=== PATIENT | male | born 1970 | race Caucasian/White ===

== ENCOUNTER → 2016-03-05 | Outpatient (CLI) | payer BC ==
[2016-03-05 10:48] LABS: CH 29.4; CHCM 33.2; HDW 2.75; HGB 15.5 gm/dL (13.0-17.5); MCH 29.4 pg (25.0-35.0); MCHC 33.1 g/dL (31.0-37.0); MCV 89.1 fL (80.0-100.0); Mean Platelet Volume 6.3; RBC 5.28 m/uL (4.30-5.90); RDW 13.7 % (11.5-15.5); WBC 6.1 k/uL (3.8-10.6)
== END | disposition home or self-care (01) ==
LOC: LABWHC1 10:18
PROVIDERS: ATTEND Internal Medicine Endocrinology, Diabetes & Metabolism
DX: E29.1 Testicular hypofunction (principal)
CPT/HCPCS: 36415; 84403; 85027

== ENCOUNTER → 2016-06-10 | Outpatient (CLI) | payer BC ==
[2016-06-10 10:49] LABS: CH 29.2; CHCM 32.8; HCT 49.1 % (39.0-53.0); HDW 2.58; MCH 29.1 pg (25.0-35.0); MCHC 32.5 g/dL (31.0-37.0); MCV 89.5 fL (80.0-100.0); Mean Platelet Volume 6.3; RBC 5.48 m/uL (4.30-5.90); RDW 14.2 % (11.5-15.5); WBC 9.1 k/uL (3.8-10.6)
[2016-06-10 13:02] LABS: Prostate Specific Antigen 1.19 ng/mL (0.00-4.00)
== END | disposition home or self-care (01) ==
LOC: LABWHC1 10:24
PROVIDERS: ATTEND Internal Medicine Endocrinology, Diabetes & Metabolism
DX: E29.1 Testicular hypofunction (principal)
CPT/HCPCS: 36415; 84153; 84402; 84403; 85027

== ENCOUNTER → 2016-10-28 | Outpatient (CLI) | payer BC ==
[2016-10-28 11:18] LABS: CH 30.4; CHCM 33.3; HDW 2.73; HGB 16.7 gm/dL (13.0-17.5); MCH 29.5 pg (25.0-35.0); MCHC 32.2 g/dL (31.0-37.0); MCV 91.7 fL (80.0-100.0); Mean Platelet Volume 7.3; RBC 5.67 m/uL (4.30-5.90); RDW 14.8 % (11.5-15.5); WBC 6.2 k/uL (3.8-10.6)
== END | disposition home or self-care (01) ==
LOC: LABWHC1 09:51
PROVIDERS: ATTEND Internal Medicine Endocrinology, Diabetes & Metabolism
DX: E29.1 Testicular hypofunction (principal)
CPT/HCPCS: 36415; 84403; 85027

== ENCOUNTER → 2017-05-12 | Outpatient (CLI) | payer BC ==
[2017-05-12 15:42] LABS: HCT 48.8 % (39.0-53.0); HGB 16.6 gm/dL (13.0-17.5); MCH 29.5 pg (25.0-35.0); MCHC 33.9 g/dL (31.0-37.0); MCV 87.2 fL (80.0-100.0); Mean Platelet Volume 6.5; Platelet Count 219 k/uL (150-450); RDW 13.5 % (11.5-15.5); WBC 6.8 k/uL (3.8-10.6)
== END | disposition home or self-care (01) ==
LOC: LABWHC1 14:32
PROVIDERS: ATTEND Internal Medicine Endocrinology, Diabetes & Metabolism
DX: E29.1 Testicular hypofunction (principal)
CPT/HCPCS: 36415; 84153; 84403; 85027

== ENCOUNTER → 2017-10-12 | Outpatient (CLI) | payer BC ==
[2017-10-12 14:22] LABS: HCT 47.2 % (39.0-53.0); HGB 15.9 gm/dL (13.0-17.5); MCH 29.2 pg (25.0-35.0); MCHC 33.7 g/dL (31.0-37.0); MCV 86.5 fL (80.0-100.0); Mean Platelet Volume 6.5; Platelet Count 249 k/uL (150-450); RBC 5.46 m/uL (4.30-5.90); RDW 14.4 % (11.5-15.5); WBC 7.4 k/uL (3.8-10.6)
== END | disposition home or self-care (01) ==
LOC: LABWHC1 13:17
PROVIDERS: ATTEND Internal Medicine Endocrinology, Diabetes & Metabolism
DX: E29.1 Testicular hypofunction (principal)
CPT/HCPCS: 36415; 84403; 85027

== ENCOUNTER → 2018-03-15 | Outpatient (CLI) | payer BC ==
[2018-03-15 16:23] LABS: HCT 52.6 % (39.0-53.0); HGB 16.7 gm/dL (13.0-17.5); MCHC 31.8 g/dL (31.0-37.0); MCV 91.2 fL (80.0-100.0); Mean Platelet Volume 5.8; Platelet Count 207 k/uL (150-450); RBC 5.77 m/uL (4.30-5.90); RDW 13.9 % (11.5-15.5); WBC 7.9 k/uL (3.8-10.6)
== END ==
LOC: LABWHC1 15:58
PROVIDERS: ATTEND Internal Medicine Endocrinology, Diabetes & Metabolism
DX: E29.1 Testicular hypofunction (principal)
CPT/HCPCS: 36415; 84403; 85027

== ENCOUNTER → 2018-11-12 | Outpatient (CLI) | payer BC ==
[2018-11-12 12:13] LABS: Anisocytosis Slight; HCT 54.6 % (39.0-53.0); HGB 18.3 gm/dL (13.0-17.5); MCH 29.7 pg (25.0-35.0); MCHC 33.5 g/dL (31.0-37.0); MCV 88.8 fL (80.0-100.0); Mean Platelet Volume 6.7; Platelet Count 198 k/uL (150-450); RBC 6.14 m/uL (4.30-5.90); RDW 16.1 % (11.5-15.5)
== END | disposition home or self-care (01) ==
LOC: LABWHC1 10:47
PROVIDERS: ATTEND Internal Medicine Endocrinology, Diabetes & Metabolism
DX: E29.1 Testicular hypofunction (principal)
CPT/HCPCS: 36415; 84153; 84403; 85027

== ENCOUNTER 2019-08-29 18:12 | Observation (INO) | payer BC ==
[2019-08-29] MEDS ORDERED: SODIUM CHLORIDE 0.9% 1,000 ML IV STA (19:17)
[2019-08-29] MEDS ORDERED: ONDANSETRON 4 MG/2 ML VIAL IVP STA (19:17)
[2019-08-29] MEDS ORDERED: PIPERACILLIN-TAZOBACTAM 3.375 GM in SODIUM CHLORIDE 0.9% 100 ML IVPB STA (19:17)
[2019-08-29] MEDS ORDERED: HYDROmorphone 1 MG/ML 1 ML SYRINGE IVP STA (19:17)
[2019-08-29] MEDS ORDERED: SODIUM CHLORIDE 0.9% 500 ML 500 ML IV STA (19:17)
[2019-08-29] MEDS ORDERED: ACETAMINOPHEN TAB 500 MG TAB PO STA (19:17)
--- NOTE | 2019-08-29 19:31 | ED ---
Abdominal Pain HPI - General Chief Complaint: Abdominal Pain Stated Complaint: appy Time Seen by Provider: 08/29/19 19:11 Source: patient Mode of arrival: ambulatory Limitations: physical limitation - History of Present Illness Initial Comments: 48-year-old male patient presents to the emergency department today for evaluation after having an outpatient computed tomography scan was positive for appendicitis. Patient states that he woke up yesterday morning with some generalized abdominal pain and tenderness. States that his started to get worse around his umbilicus and then moved to the right lower quadrant last night. States that he did have fevers throughout the night last night. Denies any nausea or vomiting. States he has been having diarrhea. Patient called his doctor this morning, had outpatient computed tomography scan done, and was sent here once they found appendicitis. Patient denies history of abdominal surgery. Denies smoking cigarettes. Is otherwise healthy. Patient denies any recent rash, cough, shortness of breath, chest pain, back pain, numbness, tingling, dizziness, weakness, hematuria, dysuria, urinary urgency, urinary frequency, headache, visual changes, or any other complaints. - Related Data Home Medications Medication Instructions Recorded Confirmed Ibuprofen [Motrin Ib] 800 mg PO Q8H PRN 08/29/19 08/29/19 Rosuvastatin Calcium [Crestor] 5 mg PO HS 08/29/19 08/29/19 Testosterone Cypionate 200 mg IM Q14D 08/29/19 08/29/19 [Depo-Testosterone] Allergies Allergy/AdvReac Type Severity Reaction Status Date / Time cotton wood AdvReac Rash/Hives Uncoded 08/29/19 20:06 Review of Systems ROS Statement: Those systems with pertinent positive or pertinent negative responses have been documented in the HPI. ROS Other: All systems not noted in ROS Statement are negative. Past Medical History Past Medical History: Hyperlipidemia History of Any Multi-Drug Resistant Organisms: None Reported Additional Past Surgical History / Comment(s): right ankle scope Past Psychological History: No Psychological Hx Reported Smoking Status: Never smoker Past Alcohol Use History: Occasional Past Drug Use History: None Reported General Exam Limitations: physical limitation General appearance: alert, in no apparent distress, other (Physical well- developed, well-nourished adult male patient in no acute distress. Vital signs upon presentation are temperature 101.7F, pulse 123, respirations 18, blood pressure 133/80, pulse ox 96% on room air.) Respiratory exam: Present: normal lung sounds bilaterally. Absent: respiratory distress, wheezes, rales, rhonchi, stridor Cardiovascular Exam: Present: regular rate, normal rhythm, normal heart sounds. Absent: systolic murmur, diastolic murmur, rubs, gallop, clicks GI/Abdominal exam: Present: soft, tenderness (Right lower quadrant tenderness), normal bowel sounds. Absent: distended, guarding, rebound, rigid Neurological exam: Present: alert, oriented X3, CN II-XII intact Psychiatric exam: Present: normal affect, normal mood Skin exam: Present: warm, dry, intact, normal color. Absent: rash Course Vital Signs 08/29/19 18:28 Temperature 101.7 F H Pulse Rate 123 H Respiratory 18 Rate Blood Pressure 133/80 O2 Sat by Pulse 96 Oximetry Medical Decision Making - Medical Decision Making 48 year-old male patient presents to the emergency department today for evaluation after having a computed tomography scan outpatient that was positive for appendicitis. Physical examination did reveal right lower quadrant abdominal tenderness. He is febrile and tachycardic upon arrival. Labs reviewed and revealed a normal white blood cell. Elevated lactic acid at 2.2. We did give IV fluids, pain medication, antipyretic, and started antibiotics. Dr. Feng was consulted and will be coming in tonight perform appendectomy. Did update patient with the plan and results he is agreeable. - Lab Data Result diagrams: 08/29/19 20:11 08/29/19 20:04 Lab Results 08/29/19 08/29/19 08/29/19 Range/Units 20:04 20:04 20:11 WBC 9.4 (3.8-10.6) k/uL RBC 6.05 H (4.30-5.90) m/uL Hgb 17.5 (13.0-17.5) gm/dL Hct 54.4 H (39.0-53.0) % MCV 89.9 (80.0-100.0) fL MCH 28.9 (25.0-35.0) pg MCHC 32.2 (31.0-37.0) g/dL RDW 14.8 (11.5-15.5) % Plt Count 151 (150-450) k/uL Neutrophils % 86 % Lymphocytes % 6 % Monocytes % 6 % Eosinophils % 0 % Basophils % 0 % Neutrophils # 8.1 H (1.3-7.7) k/uL Lymphocytes # 0.5 L (1.0-4.8) k/uL Monocytes # 0.5 (0-1.0) k/uL Eosinophils # 0.0 (0-0.7) k/uL Basophils # 0.0 (0-0.2) k/uL Sodium 133 L (137-145) mmol/L Potassium 4.5 (3.5-5.1) mmol/L Chloride 98 (98-107) mmol/L Carbon Dioxide 26 (22-30) mmol/L Anion Gap 9 mmol/L BUN 12 (9-20) mg/dL Creatinine 1.53 H (0.66-1.25) mg/dL Est GFR (CKD-EPI)AfAm 62 (>60 ml/min/1.73 sqM) Est GFR (CKD-EPI)NonAf 54 (>60 ml/min/1.73 sqM) Glucose 92 (74-99) mg/dL Plasma Lactic Acid Tyson 2.2 H* (0.7-2.0) mmol/L Calcium 9.4 (8.4-10.2) mg/dL Total Bilirubin 1.3 (0.2-1.3) mg/dL AST 39 (17-59) U/L ALT 44 (4-49) U/L Alkaline Phosphatase 87 (38-126) U/L Total Protein 7.8 (6.3-8.2) g/dL Albumin 4.5 (3.5-5.0) g/dL Amylase 67 (30-110) U/L Lipase 81 (23-300) U/L - Radiology Data Radiology results: report reviewed CT abdomen and pelvis is obtained. Report was reviewed in its entirety. Impression by Dr. Pearce shows fat stranding inflammatory changes around the thickened appendix consistent with acute appendicitis. No abscess. Disposition Clinical Impression: Appendicitis Disposition: ADMITTED IP TO THIS [facility] Condition: Serious Referrals: Modesto Hayes MD [Primary Care Provider] - 1-2 days Decision to Admit Reason: Admit from EC Decision Date: 08/29/19 Decision Time: 21:16
[2019-08-29 20:24] LABS: Basophils % (A) 0 %; Eosinophils % (A) 0 %; HCT 54.4 % (39.0-53.0); HGB 17.5 gm/dL (13.0-17.5); Lymphocytes # (A) 0.5 k/uL (1.0-4.8); Lymphocytes % (A) 6 %; MCH 28.9 pg (25.0-35.0); MCHC 32.2 g/dL (31.0-37.0); MCV 89.9 fL (80.0-100.0); Mean Platelet Volume 6.9; Monocytes # (A) 0.5 k/uL (0-1.0); Monocytes % (A) 6 %; Neutrophils # (A) 8.1 k/uL (1.3-7.7); Neutrophils % (A) 86 %; Platelet Count 151 k/uL (150-450); RBC 6.05 m/uL (4.30-5.90); RDW 14.8 % (11.5-15.5); WBC 9.4 k/uL (3.8-10.6)
[2019-08-29] MEDS ORDERED: ONDANSETRON 4 MG/2 ML VIAL IVP PRN ×2 (20:26→22:22)
[2019-08-29] MEDS ORDERED: NALOXONE 0.4 MG/ML 1 ML VIAL IV PRN ×2 (20:26→22:22)
[2019-08-29 20:35] LABS: Potassium 4.5 mmol/L (3.5-5.1)
[2019-08-29 20:36] LABS: Albumin 4.5 g/dL (3.5-5.0); Calcium 9.4 mg/dL (8.4-10.2); Total Bilirubin 1.3 mg/dL (0.2-1.3); Total Protein 7.8 g/dL (6.3-8.2)
[2019-08-29] MEDS ORDERED: ROCURONIUM BROMIDE 10 MG/ML 5 ML VIAL IV ONE (21:35)
[2019-08-29] MEDS ORDERED: MIDAZOLAM 2 MG/2 ML VIAL ONE (21:35)
[2019-08-29] MEDS ORDERED: LIDOCAINE 1% INJ 10MG/ML (20 ML MDV) ONE (21:35)
[2019-08-29] MEDS ORDERED: SUCCINYLCHOLINE CHLORIDE VIAL 200 MG/10 ML VIAL IV ONE (21:35)
[2019-08-29] MEDS ORDERED: KETOROLAC 30 MG/ML 1 ML VIAL ONE (21:35)
[2019-08-29] MEDS ORDERED: GLYCOPYRROLATE 0.2 MG/ML 2 ML VIAL ONE (21:35)
[2019-08-29] MEDS ORDERED: NEOSTIGMINE 1 MG/ML 10 ML VIAL ONE (21:35)
[2019-08-29] MEDS ORDERED: PROPOFOL 10 MG/ML 20 ML VIAL IV ONE (21:35)
[2019-08-29] MEDS ORDERED: HEPARIN SODIUM,PORCINE 5,000 UNIT/ML 1 ML VIAL ONE (21:35)
[2019-08-29] MEDS ORDERED: ONDANSETRON 4 MG/2 ML VIAL ONE (21:35)
[2019-08-29] MEDS ORDERED: fentaNYL (PF) 50 MCG/ML 2 ML AMP ONE (21:35)
[2019-08-29] MEDS ORDERED: DEXAMETHASONE SOD PHOSPHATE 10 MG/ML 1 ML VIAL ONE (21:35)
[2019-08-29] MEDS ORDERED: ceFAZolin 1,000 MG VIAL ONE (21:35)
[2019-08-29] MEDS ORDERED: BUPIVACAINE (PF) 0.25% 30 ML VIAL SQ ONE (21:38)
[2019-08-29] MEDS ORDERED: SODIUM CHLORIDE 0.9% 1,000 ML IV ONE (21:39)
--- NOTE | 2019-08-29 21:43 | P.GSHP ---
History of Present Illness H&P Date: 08/29/19 Chief Complaint: Right lower quadrant pain This a 48-year-old male with a 24 history of right lower quadrant pain. Patient was worked up emergency room found have evidence of acute appendicitis. Past Medical History Past Medical History: Hyperlipidemia History of Any Multi-Drug Resistant Organisms: None Reported Additional Past Surgical History / Comment(s): right ankle scope Past Psychological History: No Psychological Hx Reported Smoking Status: Never smoker Past Alcohol Use History: Occasional Past Drug Use History: None Reported Medications and Allergies Home Medications Medication Instructions Recorded Confirmed Type Ibuprofen [Motrin Ib] 800 mg PO Q8H PRN 08/29/19 08/29/19 History Rosuvastatin Calcium [Crestor] 5 mg PO HS 08/29/19 08/29/19 History Testosterone Cypionate 200 mg IM Q14D 08/29/19 08/29/19 History [Depo-Testosterone] Allergies Allergy/AdvReac Type Severity Reaction Status Date / Time cotton wood AdvReac Rash/Hives Uncoded 08/29/19 20:06 Surgical - Exam Vital Signs Temp Pulse Resp BP Pulse Ox 101.7 F H 123 H 18 133/80 96 08/29/19 18:28 08/29/19 18:28 08/29/19 18:28 08/29/19 18:28 08/29/19 18:28 - General well developed, well nourished, no distress - Eyes PERRL - ENT normal pinna - Neck no masses - Respiratory normal expansion - Cardiovascular Rhythm: regular - Abdomen Marked right lower quadrant tenderness Abdomen: soft Results - Labs 08/29/19 20:11 08/29/19 20:04 Abnormal Lab Results - Last 24 Hours (Table) 08/29/19 08/29/19 08/29/19 Range/Units 20:04 20:04 20:11 RBC 6.05 H (4.30-5.90) m/uL Hct 54.4 H (39.0-53.0) % Neutrophils # 8.1 H (1.3-7.7) k/uL Lymphocytes # 0.5 L (1.0-4.8) k/uL Sodium 133 L (137-145) mmol/L Creatinine 1.53 H (0.66-1.25) mg/dL Plasma Lactic Acid Tyson 2.2 H* (0.7-2.0) mmol/L Diabetes panel 08/29/19 Range/Units 20:04 Sodium 133 L (137-145) mmol/L Potassium 4.5 (3.5-5.1) mmol/L Chloride 98 (98-107) mmol/L Carbon Dioxide 26 (22-30) mmol/L BUN 12 (9-20) mg/dL Creatinine 1.53 H (0.66-1.25) mg/dL Glucose 92 (74-99) mg/dL Calcium 9.4 (8.4-10.2) mg/dL AST 39 (17-59) U/L ALT 44 (4-49) U/L Alkaline Phosphatase 87 (38-126) U/L Total Protein 7.8 (6.3-8.2) g/dL Albumin 4.5 (3.5-5.0) g/dL Calcium panel 08/29/19 Range/Units 20:04 Calcium 9.4 (8.4-10.2) mg/dL Albumin 4.5 (3.5-5.0) g/dL Pituitary panel 08/29/19 Range/Units 20:04 Sodium 133 L (137-145) mmol/L Potassium 4.5 (3.5-5.1) mmol/L Chloride 98 (98-107) mmol/L Carbon Dioxide 26 (22-30) mmol/L BUN 12 (9-20) mg/dL Creatinine 1.53 H (0.66-1.25) mg/dL Glucose 92 (74-99) mg/dL Calcium 9.4 (8.4-10.2) mg/dL Adrenal panel 08/29/19 Range/Units 20:04 Sodium 133 L (137-145) mmol/L Potassium 4.5 (3.5-5.1) mmol/L Chloride 98 (98-107) mmol/L Carbon Dioxide 26 (22-30) mmol/L BUN 12 (9-20) mg/dL Creatinine 1.53 H (0.66-1.25) mg/dL Glucose 92 (74-99) mg/dL Calcium 9.4 (8.4-10.2) mg/dL Total Bilirubin 1.3 (0.2-1.3) mg/dL AST 39 (17-59) U/L ALT 44 (4-49) U/L Alkaline Phosphatase 87 (38-126) U/L Total Protein 7.8 (6.3-8.2) g/dL Albumin 4.5 (3.5-5.0) g/dL Assessment and Plan Assessment: Acute appendicitis. We'll perform laparoscopic appendectomy
[2019-08-29] MEDS ORDERED: SODIUM CHLORIDE 0.9% 150 ML with ceFAZolin 3,000 MG IV ONE ×2 (21:51)
[2019-08-29] MEDS ORDERED: LACTATED RINGERS 1,000 ML IV ONE ×2 (22:15→22:22)
[2019-08-29] MEDS ORDERED: METOCLOPRAMIDE 5 MG/ML 2 ML VIAL IVP PRN (22:22)
[2019-08-29] MEDS ORDERED: HYDROmorphone 0.5 MG/0.5 ML SYRINGE IVP PRN (22:22)
[2019-08-30] MEDS: HYDROmorphone 1 MG/ML 1 ML SYRINGE IVP PRN ×3 (00:28→09:20)
[2019-08-30] MEDS: PIPERACILLIN-TAZOBACTAM 3.375 GM in SODIUM CHLORIDE 0.9% 100 ML IVPB SCH ×3 (03:55→19:29)
[2019-08-30 06:40] LABS: Appearance,Urine Clear (Clear); Bilirubin,Urine Negative (Negative); Blood,Urine Large (Negative); Color,Urine Yellow; Glucose,Urine (UA) Negative (Negative); Hyaline Casts,Urine 3 /lpf (0-2); Ketones,Urine 1+ (Negative); Leukocyte Esterase,Urine Negative (Negative); Mucus,Urine Occasional /hpf; Nitrite,Urine Negative (Negative); Protein,Urine 2+ (Negative); RBC,Urine 1 /hpf (0-5); Urobilinogen,Urine <2.0 mg/dL (<2.0); WBC,Urine 2 /hpf (0-5)
[2019-08-30 07:14] LABS: Specific Gravity,Urine 1.046 (1.001-1.035)
[2019-08-30 07:41] LABS: Basophils % (A) 0 %; Eosinophils % (A) 0 %; HCT 47.8 % (39.0-53.0); HGB 15.5 gm/dL (13.0-17.5); Lymphocytes # (A) 0.4 k/uL (1.0-4.8); Lymphocytes % (A) 4 %; MCH 29.4 pg (25.0-35.0); MCHC 32.5 g/dL (31.0-37.0); MCV 90.5 fL (80.0-100.0); Mean Platelet Volume 7.1; Monocytes # (A) 0.5 k/uL (0-1.0); Monocytes % (A) 4 %; Neutrophils # (A) 11.7 k/uL (1.3-7.7); Neutrophils % (A) 91 %; Platelet Count 164 k/uL (150-450); RBC 5.28 m/uL (4.30-5.90); RDW 14.8 % (11.5-15.5); WBC 12.8 k/uL (3.8-10.6)
[2019-08-30 08:10] LABS: Albumin 3.8 g/dL (3.5-5.0); Calcium 8.1 mg/dL (8.4-10.2); Potassium 5.3 mmol/L (3.5-5.1); Total Protein 6.7 g/dL (6.3-8.2)
[2019-08-30] MEDS: ENOXAPARIN 40 MG/0.4 ML SYRINGE SQ SCH (09:22)
--- NOTE | 2019-08-30 11:37 | P.OP ---
Date of Procedure: 08/29/19 Preoperative Diagnosis: Acute appendicitis Postoperative Diagnosis: Acute retrocecal appendicitis Procedure(s) Performed: Open appendectomy Anesthesia: NELSY Surgeon: Nolan Verma Estimated Blood Loss (ml): 50 Pathology: other (Appendix) Condition: stable Disposition: PACU Description of Procedure: The patient's placed on the operating table in the supine position. The patient received general anesthesia. The abdomen was prepped and draped in the usual sterile fashion. The skin was anesthetized 1% local Xylocaine at the trocar sites. Using an 11 blade the skin was incised at the umbilicus. The umbilicus was grasped with a Brewster clamp and then a Veress needle was placed into the peritoneal cavity. Position of the Veress needle was confirmed with positive drop test. After adequate insufflation a 5 mm trocar was placed into the peritoneal cavity. The abdomen was further insufflated. And then the laparoscope was placed in the peritoneal cavity. Next a 5 mm trocar was placed in the midline suprapubic position. And then a 10 mm trocar was placed in the midline epigastric position. The patient was rotated with the right side up and in Trendelenburg. The appendix appeared to be retrocecal. The appendix was grossly inflamed Using blunt dissection the appendix was attempted to be brought up into the wound. There was some bleeding from the appendiceal artery. At this point it was decided to convert procedure open technique due to nonvisualization of the appendix. The trochars withdrawn. The abdomen was incised in the midline. Using cautery the abdominal wall was divided. The body wall retractors placed a wound. The cecum and appendix were then brought towards the midline. The appendiceal artery was ligated with 3-0 silk suture. The appendix was then divided after a Endoloop was placed around the base the appendix. The appendix was divided with the Harmonic scissors. And sent to pathology. The abdomen was irrigated there is no being seen. The fascia was closed with looped #1 PDS suture. Skin was closed ld. Patient top she will was sent to recovery room stable condition.
--- NOTE | 2019-08-30 12:20 | P.PN ---
Subjective Progress Note Date: 08/30/19 Principal diagnosis: Acute appendicitis The patient's postoperative day 1 from open appendectomy for acute retrocecal appendicitis. He has minimal complaints of pain. Objective - Vital Signs Vital signs: Vital Signs Temp 98.1 F 08/30/19 04:37 Pulse 94 08/30/19 08:00 Resp 16 08/30/19 08:00 BP 126/83 08/30/19 04:37 Pulse Ox 96 08/30/19 04:37 Intake & Output 08/29/19 08/30/19 08/30/19 18:59 06:59 18:59 Intake Total 1850 Output Total 370 Balance 1480 Weight 154.221 kg 154.221 kg Intake: IV 1050 Intake, IV Titration 800 Amount Lactated Ringers 1,000 ml 800 @ 125 mls/hr IV .Q8H ONE Rx#:[id number] Output: Urine 350 Estimated Blood Loss 20 Other: Voiding Method Urinal Urinal - Constitutional General appearance: Present: cooperative - Gastrointestinal Gastrointestinal Comment(s): Abdomen soft. Incision site is clean dry tach. There is minimal incisional tenderness - Labs CBC & Chem 7: 08/30/19 06:43 08/30/19 06:43 Labs: Abnormal Lab Results - Last 24 Hours (Table) 08/29/19 08/29/19 08/29/19 Range/Units 20:04 20:04 20:11 WBC (3.8-10.6) k/uL RBC 6.05 H (4.30-5.90) m/uL Hct 54.4 H (39.0-53.0) % Neutrophils # 8.1 H (1.3-7.7) k/uL Lymphocytes # 0.5 L (1.0-4.8) k/uL Sodium 133 L (137-145) mmol/L Potassium (3.5-5.1) mmol/L Creatinine 1.53 H (0.66-1.25) mg/dL Glucose (74-99) mg/dL Plasma Lactic Acid Tyson 2.2 H* (0.7-2.0) mmol/L Calcium (8.4-10.2) mg/dL AST (17-59) U/L Ur Specific [place] (1.001-1.035) Urine Protein (Negative) Urine Ketones (Negative) Urine Blood (Negative) Hyaline Casts (0-2) /lpf Urine Mucus (None) /hpf 08/30/19 08/30/19 08/30/19 Range/Units 05:30 06:43 06:43 WBC 12.8 H (3.8-10.6) k/uL RBC (4.30-5.90) m/uL Hct (39.0-53.0) % Neutrophils # 11.7 H (1.3-7.7) k/uL Lymphocytes # 0.4 L (1.0-4.8) k/uL Sodium 136 L (137-145) mmol/L Potassium 5.3 H (3.5-5.1) mmol/L Creatinine 1.46 H (0.66-1.25) mg/dL Glucose 141 H (74-99) mg/dL Plasma Lactic Acid Tyson (0.7-2.0) mmol/L Calcium 8.1 L (8.4-10.2) mg/dL AST 97 H (17-59) U/L Ur Specific Cass 1.046 H (1.001-1.035) Urine Protein 2+ H (Negative) Urine Ketones 1+ H (Negative) Urine Blood Large H (Negative) Hyaline Casts 3 H (0-2) /lpf Urine Mucus Occasional H (None) /hpf Assessment and Plan Assessment: Acute appendicitis. Patient received IV antibiotics.
[2019-08-30] MEDS: HYDROcodone/APAP 5-325MG 1 EACH TAB PO PRN (17:29)
[2019-08-30] MEDS ORDERED: ATORVASTATIN 10 MG TAB PO SCH (21:00)
--- NOTE | 2019-08-30 22:14 | P.CONS ---
History of Present Illness - Reason for Consult Consult date: 08/30/19 Medical management Requesting physician: Nolan Verma - Chief Complaint Abdominal pain - History of Present Illness Consultation: This is a very pleasant [address] Hayes. Chronic stable medical conditions include morbid obesity, hypercholesterolemia resumed, hypercholesterolemia. Patient has benefited from testosterone injections. Yesterday morning patient started of with abdominal pain that gradually was more diffuse in the abdomen. Later in the evening the pain went out to the right lower quadrant. Patient did develop a fever. There is no nausea vomiting. Patient was taken to the OR yesterday evening and open appendectomy had to be carried out. (The patient this morning. Laying in bed. Pain is controlled. Has not passed any flatus. No nausea vomiting. No more fever. Review of systems: GEN.: Tired EYES: None HEENT: None NECK: None RESPIRATORY: None CARDIOVASCULAR: None GASTROINTESTINAL: As above] GENITOURINARY: None MUSCULOSKELETAL: None LYMPHATICS: None HEMATOLOGICAL: None PSYCHIATRY: None NEUROLOGICAL: None Past medical history to include: Hypogastric to resume, hyperlipidemia, obesity Social history: Employed with [employer]. . Alcohol socially. Denies use of street recreational drugs. Physical examination: VITAL SIGNS: 98.1, 106, 94, 16, 123/75, 97% on 3 L GENERAL: [BMI 42.7, laying in bed awake. EYES: Pupils equal. Conjunctiva normal. HEENT: External appearance of nose and ears normal, oral cavity grossly normal. NECK: JVD not raised; masses not palpable. HEART: First and second heart sounds are normal; no edema. LUNGS: Respiratory rate normal; clear to auscultation. ABDOMEN: Soft, mild tenderness, no guarding or rigidity, liver spleen not palpable, no masses palpable. PSYCH: Alert and oriented x3; mood and affect normal. NEUROLOGICAL: Cranial nerves grossly intact; no facial asymmetry, power and sensation grossly intact. LYMPHATICS: No lymph nodes palpable in the axilla and neck INVESTIGATIONS, reviewed in the clinical context: White count 12.8 hemoglobin 13.5 potassium 5.3 creatinine 1.46 Assessment: -Acute appendicitis followed by open appendectomy -Morbid obesity BMI 43.7 -Hyperlipidemia -Abnormal creatinine in the patient does take Motrin Plan: We'll put the patient on IV fluids. Repeat a UA in the morning. Repeat BMP in the morning. May need further workup as an outpatient. Care was discussed with the patient. Questions were answered. Encouraged to be out of bed. Thank you Dr. Verma Past Medical History Past Medical History: Hyperlipidemia History of Any Multi-Drug Resistant Organisms: None Reported Additional Past Surgical History / Comment(s): right ankle scope x2; appendectomy 08/29/19 Past Anesthesia/Blood Transfusion Reactions: No Reported Reaction Past Psychological History: No Psychological Hx Reported Smoking Status: Never smoker Past Alcohol Use History: Occasional Past Drug Use History: None Reported - Past Family History Father Family Medical History: Diabetes Mellitus Medications and Allergies Home Medications Medication Instructions Recorded Confirmed Type Ibuprofen [Motrin Ib] 800 mg PO Q8H PRN 08/29/19 08/29/19 History Rosuvastatin Calcium [Crestor] 5 mg PO HS 08/29/19 08/29/19 History Testosterone Cypionate 200 mg IM Q14D 08/29/19 08/29/19 History [Depo-Testosterone] Allergies Allergy/AdvReac Type Severity Reaction Status Date / Time cotton wood AdvReac Rash/Hives Uncoded 08/29/19 20:06 Physical Exam Vitals: Vital Signs Temp Pulse Pulse Pulse Resp BP BP 08/30/19 08:00 106 H 94 16 08/30/19 04:37 98.1 F 106 H 16 126/83 08/30/19 03:15 94 147/70 08/30/19 03:00 96 145/65 08/30/19 02:45 107 H 140/72 08/30/19 02:30 99 119/71 08/30/19 02:15 94 155/76 08/30/19 02:00 101 H 153/65 08/30/19 01:45 100 149/81 08/30/19 01:30 97.4 F L 93 16 136/68 08/30/19 00:05 99.4 F 92 16 130/64 08/30/19 00:00 92 16 08/29/19 23:29 84 18 132/55 08/29/19 23:15 81 18 150/66 08/29/19 23:00 97 16 141/63 08/29/19 22:49 97.5 F L 103 H 18 159/68 08/29/19 21:00 100.6 F H 113 H 17 151/99 08/29/19 20:30 149/94 08/29/19 20:09 08/29/19 18:28 101.7 F H 123 H 18 133/80 Pulse Ox 08/30/19 08:00 08/30/19 04:37 96 08/30/19 03:15 08/30/19 03:00 08/30/19 02:45 08/30/19 02:30 08/30/19 02:15 08/30/19 02:00 08/30/19 01:45 08/30/19 01:30 93 L 08/30/19 00:05 95 08/30/19 00:00 08/29/19 23:29 98 08/29/19 23:15 98 08/29/19 23:00 96 08/29/19 22:49 96 08/29/19 21:00 93 L 08/29/19 20:30 95 08/29/19 20:09 99 08/29/19 18:28 96 Intake and Output 08/29/19 08/30/19 08/30/19 22:59 06:59 14:59 Intake Total 850 1000 Output Total 20 350 Balance 830 650 Intake: IV 850 200 Intake, IV Titration 800 Amount Lactated Ringers 1,000 ml 800 @ 125 mls/hr IV .Q8H ONE Rx#:[id number] Output: Urine 350 Estimated Blood Loss 20 Other: Voiding Method Urinal Urinal Weight 154.221 kg 154.221 kg Results CBC & Chem 7: 08/30/19 06:43 08/30/19 06:43 Labs: Abnormal Lab Results - Last 24 Hours (Table) 08/29/19 08/29/19 08/29/19 Range/Units 20:04 20:04 20:11 WBC (3.8-10.6) k/uL RBC 6.05 H (4.30-5.90) m/uL Hct 54.4 H (39.0-53.0) % Neutrophils # 8.1 H (1.3-7.7) k/uL Lymphocytes # 0.5 L (1.0-4.8) k/uL Sodium 133 L (137-145) mmol/L Potassium (3.5-5.1) mmol/L Creatinine 1.53 H (0.66-1.25) mg/dL Glucose (74-99) mg/dL Plasma Lactic Acid Tyson 2.2 H* (0.7-2.0) mmol/L Calcium (8.4-10.2) mg/dL AST (17-59) U/L Ur Specific [place] (1.001-1.035) Urine Protein (Negative) Urine Ketones (Negative) Urine Blood (Negative) Hyaline Casts (0-2) /lpf Urine Mucus (None) /hpf 08/30/19 08/30/19 08/30/19 Range/Units 05:30 06:43 06:43 WBC 12.8 H (3.8-10.6) k/uL RBC (4.30-5.90) m/uL Hct (39.0-53.0) % Neutrophils # 11.7 H (1.3-7.7) k/uL Lymphocytes # 0.4 L (1.0-4.8) k/uL Sodium 136 L (137-145) mmol/L Potassium 5.3 H (3.5-5.1) mmol/L Creatinine 1.46 H (0.66-1.25) mg/dL Glucose 141 H (74-99) mg/dL Plasma Lactic Acid Tyson (0.7-2.0) mmol/L Calcium 8.1 L (8.4-10.2) mg/dL AST 97 H (17-59) U/L Ur Specific [place] 1.046 H (1.001-1.035) Urine Protein 2+ H (Negative) Urine Ketones 1+ H (Negative) Urine Blood Large H (Negative) Hyaline Casts 3 H (0-2) /lpf Urine Mucus Occasional H (None) /hpf
[2019-08-30] MEDS: SODIUM CHLORIDE 0.9% 1,000 ML IV SCH (22:36)
[2019-08-31] MEDS: HYDROcodone/APAP 5-325MG 1 EACH TAB PO PRN (00:05)
[2019-08-31] MEDS: PIPERACILLIN-TAZOBACTAM 3.375 GM in SODIUM CHLORIDE 0.9% 100 ML IVPB SCH (04:07)
[2019-08-31 05:08] VITALS: BP 115/76; PULSE 86; RESP 20; TEMP 98
[2019-08-31] MEDS: SODIUM CHLORIDE 0.9% 1,000 ML IV SCH (05:20)
[2019-08-31] MEDS: ENOXAPARIN 40 MG/0.4 ML SYRINGE SQ SCH (08:20)
[2019-08-31 08:31] LABS: Calcium 8.5 mg/dL (8.4-10.2); Potassium 4.8 mmol/L (3.5-5.1)
--- NOTE | 2019-08-31 09:28 | P.DS ---
Providers Date of admission: 08/29/19 20:27 Expected date of discharge: 08/31/19 Attending physician: Nolan Verma Consults: 08/29/19 22:22 Consult Physician Routine Consulting Provider: Declan Gill Consult Reason/Comments: Medical management Do you want consulting provider notified?: Yes Primary care physician: [facility] Hospital Course: Is a 48-year-old male who underwent open appendectomy. Patient did well postoperatively. Please see chart for details. Procedures: Open appendectomy Patient Condition at Discharge: Good Plan - Discharge Summary Discharge Rx Participant: No New Discharge Prescriptions: New Docusate [Colace] 100 mg PO BID #20 capsule HYDROcodone/APAP 5-325MG [Buna 5-325] 1 tab PO Q6HR PRN #10 tab PRN Reason: Pain No Action Ibuprofen [Motrin Ib] 800 mg PO Q8H PRN PRN Reason: Pain Testosterone Cypionate [Depo-Testosterone] 200 mg IM Q14D Rosuvastatin Calcium [Crestor] 5 mg PO HS Discharge Medication List Ibuprofen [Motrin Ib] 800 mg PO Q8H PRN 08/29/19 [History] Rosuvastatin Calcium [Crestor] 5 mg PO HS 08/29/19 [History] Testosterone Cypionate [Depo-Testosterone] 200 mg IM Q14D 08/29/19 [History] Docusate [Colace] 100 mg PO BID #20 capsule 08/31/19 [Rx] HYDROcodone/APAP 5-325MG [Buna 5-325] 1 tab PO Q6HR PRN #10 tab 08/31/19 [Rx] Follow up Appointment(s)/Referral(s): Modesto Hayes MD [Primary Care Provider] - 1-2 days Nolan Verma MD [STAFF PHYSICIAN] - 1 Week
[2019-08-31 11:16] LABS: Appearance,Urine Clear (Clear); Bilirubin,Urine Negative (Negative); Blood,Urine Trace (Negative); Color,Urine Yellow; Glucose,Urine (UA) Negative (Negative); Ketones,Urine Negative (Negative); Leukocyte Esterase,Urine Negative (Negative); Mucus,Urine Rare /hpf; Nitrite,Urine Negative (Negative); Protein,Urine Trace (Negative); Specific Gravity,Urine 1.019 (1.001-1.035); Urobilinogen,Urine <2.0 mg/dL (<2.0); WBC,Urine 1 /hpf (0-5)
--- NOTE | 2019-08-31 12:57 | US ---
EXAMINATION TYPE: US kidneys/renal DATE OF EXAM: 08/31/2019 COMPARISON: CT CLINICAL HISTORY: abnormal creatinine. Post operative for appendectomy 08/29/19. EXAM MEASUREMENTS: Right Kidney: 11.8 x 5.8 x 6.1 cm Left Kidney: 12.3 x 6.2 x 6.3 cm Post Void Residual Volume: not assessed on inpatient Right Kidney: mid cortical cyst is noted = 0.8 x 0.9 x 0.8cm Left Kidney: No hydronephrosis or masses seen There is no evidence for hydronephrosis at this point in time. No nephrolithiasis is seen. No brandon s are identified. IMPRESSION: Hypoechoic lesion right kidney too small to characterize but statistically most likely related to cys t.
--- NOTE | 2019-08-31 23:40 | P.PN ---
Progress Note - Text Progress Note Date: 08/31/19 - Chief Complaint Abdominal pain - History of Present Illness Consultation: This is a very pleasant [address] Hayes. Chronic stable medical conditions include morbid obesity, hypercholesterolemia resumed, hypercholesterolemia. Patient has benefited from testosterone injections. Yesterday morning patient started of with abdominal pain that gradually was more diffuse in the abdomen. Later in the evening the pain went out to the right lower quadrant. Patient did develop a fever. There is no nausea vomiting. Patient was taken to the OR yesterday evening and open appendectomy had to be carried out. (The patient this morning. Laying in bed. Pain is controlled. Has not passed any flatus. No nausea vomiting. No more fever. Today-patient feeling well. Did tolerate her diet. No nausea vomiting. I did discuss with the patient about his elevated creatinine. Patient does work out and takes protein supplements. I did order renal ultrasound and discuss with the patient to follow-up the results with nephrology as an outpatient. Told him not to take protein supplements. Antibiotic as per Dr. Verma. Patient to take any NSAIDs. Review of systems: Was done for constitutional, cardiovascular, GI, pulmonary. r elevant finding as above Current medications reviewed in the today's electronic records Physical examination: VITAL SIGNS: 98, 86, 20, 1506, 95% room air GENERAL: [BMI 42.7, laying in bed awake. EYES: Pupils equal. Conjunctiva normal. HEENT: External appearance of nose and ears normal, oral cavity grossly normal. NECK: JVD not raised; masses not palpable. HEART: First and second heart sounds are normal; no edema. LUNGS: Respiratory rate normal; clear to auscultation. ABDOMEN: Soft, mild tenderness, no guarding or rigidity, liver spleen not palpable, no masses palpable. PSYCH: Alert and oriented x3; mood and affect normal. INVESTIGATIONS, reviewed in the clinical context: Creatinine 1.48 UA-trace protein The Lotrisone-no evidence of hydronephrosis. No nephrolithiasis. No mass identified. Previous testing White count 12.8 hemoglobin 13.5 potassium 5.3 creatinine 1.46 Assessment: -Acute appendicitis followed by open appendectomy -Morbid obesity BMI 43.7 -Hyperlipidemia -Abnormal creatinine in the patient does take Motrin-to be further worked up as an outpatient. Plan: Care was discussed in length with the patient. Follow with nephrology as an outpatient. Not to take NSAIDs or protein supplements. Thank you Dr. Verma
== END 2019-08-31 12:24 | disposition home or self-care (01) ==
LOC: EC 18:12 → 5NMEDONC 20:27 → INTOOBSV 08-30 15:08 → OBSVTOIN 08-30 15:08 → UNDODISIN 08-31 12:24
PROVIDERS: ADMIT Surgery; ATTEND Surgery
PROC: 0DTJ0ZZ Resection of Appendix, Open Approach (ICD-10-PCS; principal; 2019-08-29 21:00)
DX: K35.30 Acute appendicitis with localized peritonitis, without perforation or gangrene (principal); E78.5 Hyperlipidemia, unspecified; G47.33 Obstructive sleep apnea (adult) (pediatric); E66.01 Morbid (severe) obesity due to excess calories; Z68.41 Body mass index [BMI] 40.0-44.9, adult; R79.89 Other specified abnormal findings of blood chemistry; E78.00 Pure hypercholesterolemia, unspecified; Z20.828 Contact with and (suspected) exposure to other viral communicable diseases; Z79.899 Other long term (current) drug therapy; Z91.09 Other allergy status, other than to drugs and biological substances; Z83.3 Family history of diabetes mellitus
CPT/HCPCS: 96374; 96375; 99284; 36415; 88304; 80053 ×2; 80048; 82150; 83605; 83690; 85025 ×2; 81001 ×2; 87040; 76770; 44950; G0378 ×3; U0003; J2543 ×3; J2250; J0330; J1644; J1100; J2710; J2405; J0690; J2001; J1650 ×2; J3010; J1885; J1170 ×2; J2704; 96365; 99285

== ENCOUNTER → 2019-08-29 | Outpatient (CLI) | payer BC ==
[2019-08-29 16:59] LABS: Basophils # (A) 0.1 k/uL (0-0.2); Basophils % (A) 1 %; Eosinophils # (A) 0.2 k/uL (0-0.7); Eosinophils % (A) 2 %; HGB 17.7 gm/dL (13.0-17.5); Lymphocytes # (A) 0.9 k/uL (1.0-4.8); Lymphocytes % (A) 8 %; MCHC 32.1 g/dL (31.0-37.0); MCV 90.3 fL (80.0-100.0); Mean Platelet Volume 7.5; Monocytes # (A) 0.6 k/uL (0-1.0); Monocytes % (A) 5 %; Neutrophils # (A) 9.5 k/uL (1.3-7.7); Neutrophils % (A) 84 %; Platelet Count 171 k/uL (150-450); RDW 14.8 % (11.5-15.5); WBC 11.4 k/uL (3.8-10.6)
[2019-08-29 17:00] LABS: HCT 55.1 % (39.0-53.0)
[2019-08-29 17:11] LABS: Albumin 4.6 g/dL (3.5-5.0); Calcium 9.3 mg/dL (8.4-10.2); Total Bilirubin 1.4 mg/dL (0.2-1.3)
--- NOTE | 2019-08-29 17:37 | CT ---
EXAMINATION TYPE: CT abdomen pelvis w con DATE OF EXAM: 08/29/2019 COMPARISON: None HISTORY: RLQ pain x1 day CT DLP: 2606.1 mGycm Automated exposure control for dose reduction was used. CONTRAST: Performed with IV Contrast, patient injected with 100 mL of Isovue 300. Images were obtained from the diaphragm to the floor the pelvis with IV contrast. Lung bases are clear. There is no pleural effusion. Heart size is normal. There is no pericardial eff usion. Liver spleen pancreas gallbladder stomach appears normal. Bile ducts are not dilated. Kidneys show satisfactory contrast opacification. There is no hydronephrosis. There is no adrenal mass. Delay ed images show normal renal excretion. There is no evidence of renal calculus. Bladder distends smoothly. There is no inguinal hernia. There is no free fluid in the pelvis. There i s no evidence of pelvic mass. There is moderate fat stranding in the right lower quadrant around the appendix. Appendix is mildly t hickened and measures up to 10 mm. Lumbar spine is intact. Bony pelvis is intact. IMPRESSION: Fat stranding and inflammatory changes around the thickened appendix consistent with acute appendicit is. No abscess.
== END | disposition home or self-care (01) ==
LOC: RADCTMAIN 15:33
PROVIDERS: ATTEND Physician Assistant
DX: K37 Unspecified appendicitis (principal)
CPT/HCPCS: 80053; 85025; 74177; 36415; Q9967

== ENCOUNTER → 2019-12-20 | Outpatient (CLI) | payer BC ==
--- NOTE | 2019-12-20 12:35 | P.SLEEP ---
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 This been going on for many years and recently his condition is better worse as the patient has gained more weight. He has loud snoring, his has noted apneas when he sleepsin the middle of the night, and the patient wakes up quite tired and fatigued and he feels sleepy throughout the day. He wakes up with a dry mouth. He occasionally has nighttime heartburn. Occasionally wakes up gasping for air and with a choking sensation. His sleep is quite restless. He occasionally sleep talks. He goes to bed around 1 AM and wakes up 9 AM in the morning. He gets up in the middle of the night to urinate. He feels that he only sleeps on 3-4 hours despite averaging more than that. He is unable to sleep on his back. He prefers to sleep on his side. His weight is up around 20 pounds over the past 1 year. He drinks around 2-3 glasses of caffeinated beverages on a daily basis. He wakes up at least 5 times the middle of the night. He has known sleep apnea and assess. No hallucinations. No cataplexy. His [place] score at 17.no sleep paralysis. No hallucinations. No cataplexy. No history of any motor vehicle accident because of feeling drowsy or sleepy. No symptoms of restless leg syndrome. No substance abuse. No head trauma. No meningitis. No alcoholism. Review of Systems Constitutional: Reports daytime sleepiness, Reports fatigue, Reports lethargy, Reports weight gain Eyes: denies as per HPI, denies blurred vision, denies bulging eye, denies decreased vision, denies diplopia, denies discharge, denies dry eye, denies irritation, denies itching, denies pain, denies photophobia, denies loss of peripheral vision, denies loss of vision, denies tunnel vision/blind spots Ears: deny: decreased hearing, ear discharge, earache, tinnitus Ears, nose, mouth and throat: Reports as per HPI Breasts: absent: as per HPI, gynecomastia Cardiovascular: Reports as per HPI Respiratory: Reports as per HPI, Reports snoring Gastrointestinal: Reports as per HPI Genitourinary: Reports as per HPI Musculoskeletal: Reports as per HPI Musculoskeletal: absent: ankle pain, ankle stiffness, ankle swelling, as per HPI, elbow pain, elbow stiffness, elbow swelling, foot pain, foot stiffness, foot swelling, hand pain, hand stiffness, hand swelling, hip pain, hip stiffness, hip swelling, knee pain, knee stiffness, knee swelling, shoulder pain, shoulder stiffness, shoulder swelling, wrist pain, wrist stiffness, wrist swelling Integumentary: Reports as per HPI Neurological: Reports as per HPI Psychiatric: Reports as per HPI Endocrine: Reports fatigue Hematologic/Lymphatic: Reports as per HPI Allergic/Immunologic: Reports as per HPI Past Medical History Past Medical History: Hyperlipidemia History of Any Multi-Drug Resistant Organisms: None Reported Additional Past Surgical History / Comment(s): right ankle scope x2; appendectomy 08/29/19 Past Anesthesia/Blood Transfusion Reactions: No Reported Reaction Past Psychological History: No Psychological Hx Reported Past Alcohol Use History: Occasional Past Drug Use History: None Reported - Past Family History Father Family Medical History: Diabetes Mellitus Medications and Allergies Home Medications Medication Instructions Recorded Confirmed Type Rosuvastatin Calcium [Crestor] 5 mg PO HS 08/29/19 08/29/19 History Testosterone Cypionate 200 mg IM Q14D 08/29/19 08/29/19 History [Depo-Testosterone] Docusate [Colace] 100 mg PO BID #20 capsule 08/31/19 Rx HYDROcodone/APAP 5-325MG [[place] 1 tab PO Q6HR PRN #10 tab 08/31/19 Rx 5-325] Levofloxacin [Levaquin] 500 mg PO DAILY 7 Days #7 tab 08/31/19 Rx Allergies Allergy/AdvReac Type Severity Reaction Status Date / Time cotton wood AdvReac Rash/Hives Uncoded 08/29/19 20:06 Physical Exam Vitals: The patient appeared well nourished and normally developed.patient is morbidly obese and the patient is calm and comfortable Vital signs as documented. Head exam is unremarkable. No scleral icterus or corneal arcus noted. Neck is without jugular venous distension, thyromegaly, or carotid bruits. the patient is a Mallampati class IV.Carotid upstrokes are brisk bilaterally. Lungs are clear to auscultation and percussion. Cardiac exam reveals the PMI to be normally sized and situated. Rhythm is regular. First and second heart sounds normal. No murmurs, rubs or gallops. Abdominal exam reveals normal bowel sounds, no masses, no organomegaly and no aortic enlargement. Extremities are nonedematous and both femoral and pedal pulses are normal.Examination of the skin revealed no evidence of significant rashes, suspicious appearing nevi or other concerning lesions.Neurologically, the patient is awake and alert and the patient does not have any focal neurological deficit. Cranial nerves are essentially intact. Assessment and Plan Plan: 1 chronic hypersomnia with an [place] score of 17. Overall clinical suspicion is very high for obstructive sleep apnea. The patient has loud snoring, witnessed apneas, sleep fragmentation and excessive daytime somnolence and sleepiness and all of these are indicating the possibility of obstructive sleep apnea. 2 obesity with a BMI 45.3. 3 hyperlipidemia Plan Overall clinical suspicion is high for obstructive sleep apnea Proceed with a home sleep study to evaluate the patient for any sleep breathing disorder Recommend good sleep hygiene measures encourage weight loss We'll offer CPAP therapy if diagnosis of sleep apnea isidentified and diagnosis. We'll continue to follow. Sleep Note - Sleep Data Previous Sleep Study: No - Sleep Note Sleep Note: Temperature: 97.9 Pulse Rate: 92 Respiratory Rate: 18 Blood Pressure: 139/85 SpO2: 97% Height: 6 foot 1 inch Weight: 344 pounds BMI: 45.3 Neck Circumference: 20 inches
== END | disposition home or self-care (01) ==
LOC: SLEEP 11:17
PROVIDERS: ATTEND Internal Medicine Critical Care Medicine
DX: G47.10 Hypersomnia, unspecified (principal); E66.9 Obesity, unspecified; E78.5 Hyperlipidemia, unspecified; Z68.42 Body mass index [BMI] 45.0-49.9, adult; Z91.09 Other allergy status, other than to drugs and biological substances; Z79.890 Hormone replacement therapy; Z79.899 Other long term (current) drug therapy
CPT/HCPCS: 99211

== ENCOUNTER → 2020-04-03 | Outpatient (CLI) | payer BC ==
--- NOTE | 2020-04-03 11:38 | PN ---
PROGRESS NOTE This patient was diagnosed having severe obstructive sleep apnea. He is a 49-year-old male patient who was obese and quite muscular berhane and the patient had a home sleep study that showed an AHI of 84. Subsequently, the patient underwent an in-lab CPAP titration and he was titrated to a CPAP pressure of 13 cm of water. He is currently using AirFit P30i large-sized nasal pillows. The patient is doing extremely well. From the first night he wore the CPAP, he has seen significant improvement. He is much more alert and awake during the day. He is not falling asleep at work. He is not falling asleep while doing his computer work. He has got much more energy. His blood pressure is under better control for now while being on CPAP therapy. Based on the compliance data that was collected over the past 30 days, I checked the data and average CPAP use is around 6.2 hours per night. The patient is using CPAP for more than 4 hours 100% of time. Leak is in the order of 20 L/minute and the patient's AHI is down to 0.8. [place] score is down to 3 and he is also losing weight. He used to weigh around 344 pounds and currently he is down to 328. His initial starting pressure is low. I increased the starting pressure up to 7 and I dropped the REM time to 10 minutes. PERTINENT PHYSICAL FINDINGS: VITALS: BP is 146/86, pulse 82, respirations 12, [place] score is at 3, temperature 98.2, weight is 328 pounds. GENERAL APPEARANCE: Calm, comfortable, obese. HEAD: Atraumatic, normocephalic. NECK: Supple. No JVD. No goiter or neck mass. Mallampati class 4. LUNGS: Clear to auscultation. HEART: Heart sounds are regular rate and rhythm. Normal S1, S2. No S3, no S4. No murmurs. ABDOMEN: Soft, nontender. No organomegaly. EXTREMITIES: No edema. No cyanosis or clubbing. NEUROLOGIC: Awake and alert. There are no focal neurological deficits. IMPRESSION: 1. Severe obstructive sleep apnea, AHI of 84, currently undergoing successful CPAP therapy at a pressure of 13 cm of water. 2. Hypersomnia, improved. [place] score is down to 3. 3. Hypertension. Blood pressure is under better control. 4. Obesity with ongoing weight loss. Current body weight is down to 328. 5. Excessive periodic movement activity not causing any significant arousals. 6. Loud snoring, recovered. 7. Chronic hypersomnia, recovered. PLAN: 1. Continue CPAP therapy at the same level of pressure. 2. Increase the starting pressure up to 7 cm of water and reduce the ramp time to 10 minutes. 3. Encourage further weight loss. 4. Treatment is successful for now. No need for any further adjustments. Keep the same mask interface and the patient will see me back in a year's time in followup. MMODL / IJN: [id number] /
== END | disposition home or self-care (01) ==
LOC: SLEEP 10:17
PROVIDERS: ATTEND Internal Medicine Critical Care Medicine
DX: G47.33 Obstructive sleep apnea (adult) (pediatric) (principal); I10 Essential (primary) hypertension; E66.9 Obesity, unspecified; G47.61 Periodic limb movement disorder; Z99.89 Dependence on other enabling machines and devices

== ENCOUNTER → 2021-09-24 | Outpatient (CLI) | payer BC ==
--- NOTE | 2021-09-24 15:59 | P.PN ---
Subjective Progress Note Date: 09/24/21 50-year-old male patient with severe symptomatically ALEXANDREA, currently on CPAP therapy and the patient is coming in for a regular routine check. The patient has a baseline AHI of 84 and the patient has been treated with CPAP therapy at a pressure of 13 cm of water. His treatment remains extremity successful. The patient has no recent weight gain or weight loss over the past 1 year. Note that the patient is reporting marked component sleep quality since he was started on CPAP therapy. He is not following sleep or feeling drowsy during working hours. I did a compliant to check on his machine and the patient was noted to have been averaging around 7.6 hours of CPAP use per night and his CPAP uses for more than 4 hours of 100%. His neck is around 80 L per minute and his AHI is down 0.6 while on treatment. No morning headaches. No nighttime shortness of breath or chest pain. No cardiac arrhythmias. No stroke. No other cardio vascular complications. He is in need for refills. Objective - Exam BP is 147/81, pulse is 98, respirations 18, temperature is 96.0 and oxygen saturations 97% on room air oxygen. [place] score is at 4. Height is 6 feet and 1 inch. The weight 331 pounds and body mass index is 43.5. The patient appeared well nourished and normally developed. Vital signs as documented. Head exam is unremarkable. No scleral icterus or corneal arcus noted. Neck is without jugular venous distension, thyromegaly, or carotid bruits. Carotid upstrokes are brisk bilaterally. Lungs are clear to auscultation and percussion. Cardiac exam reveals the PMI to be normally sized and situated. Rhythm is regular. First and second heart sounds normal. No murmurs, rubs or gallops. Abdominal exam reveals normal bowel sounds, no masses, no organomegaly and no aortic enlargement. Extremities are nonedematous and both femoral and ped al pulses are normal.Examination of the skin revealed no evidence of significant rashes, suspicious appearing nevi or other concerning lesions.Neurologically, the patient is awake and alert and the patient does not have any focal neurological deficit. Cranial nerves are essentially intact. Assessment and Plan Plan: Severe ALEXANDREA with an AHI of 84, successfully treated with CPAP therapy. Weight is stable. The patient remains extremely compliant Hypersomnia recovered Hypertension currently inactive in stable Obesity, weight is stable Snoring recovered Excessive. Periodic limb movement activity and not causing any arousals. Plan Continue CPAP therapy is same level of pressure which is at 13 cm of water Refill supplies Compliant to check was done and the treatment is successful and the patient is very compliant No cardiovascular complications BP is better controlled No major hypersomnia and sleepiness We'll continue to follow
== END | disposition home or self-care (01) ==
LOC: SLEEP 15:07
PROVIDERS: ATTEND Internal Medicine Critical Care Medicine
DX: Z53.9 Procedure and treatment not carried out, unspecified reason (principal)

== ENCOUNTER → 2022-12-30 | Outpatient (CLI) | payer BC ==
--- NOTE | 2022-12-30 16:34 | P.PN ---
Progress Note - Text Progress Note Date: 12/30/22 A pleasant 52-year-old male patient, with severe obstructive sleep apnea was coming in for a follow-up. 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 His mobility obstructive sleep apnea with an AHI of 84 and the patient remains on CPAP therapy at a pressure of 13 cm of water. He has no specific complaints. His weight has remained stable. No hypersomnia or sleepiness during the day. Is very much dependent on his CPAP and is extremely compliant and is using the machine every night. His compliancy for more than 4 hours is in order of 100%. Is averaging around 7.4 hours of CPAP use per night. His leak is only at 18 L/m and his AHI is down to 0.7. No snoring while on CPAP therapy. No hypersomnia or sleepiness. He is using the air fit p30 i nasal pillows, large size. No issues with hypertension. No she's with cardiac disease. No issues with atrial fibrillation. No history of any cardiovascular complications. No stroke. BP is 138/76, pulse is 78, respirations 16, weight is 332, [place] score is at 4, pulse ox is 94% on room air oxygen. The patient appeared well nourished and normally developed. Vital signs as documented. Head exam is unremarkable. No scleral icterus or corneal arcus noted. Neck is without jugular venous distension, thyromegaly, or carotid bruits. Carotid upstrokes are brisk bilaterally. Lungs are clear to auscultation and percussion. Cardiac exam reveals the PMI to be normally sized and situated. Rhythm is regular. First and second heart sounds normal. No murmurs, rubs or gallops. Abdominal exam reveals normal bowel sounds, no masses, no organomegaly and no aortic enlargement. Extremities are nonedematous and both femoral and pedal pulses are normal.Examination of the skin revealed no evidence of significant rashes, suspicious appearing nevi or other concerning lesions.Neurologically, the patient is awake and alert and the patient does not have any focal neurological deficit. Cranial nerves are essentially intact. Medication includes Crestor 10 mg 1 tablet a day Assessment Severe symptomatic ALEXANDREA with an HIV 84. The patient is successfully treated with CPAP therapy at a pressure of 13 cm of water Hypertension, currently inactive and stable Obesity with a weight of 82 Hyperlipidemia Plan Continue CPAP therapy the same level of pressure. Keep same mask interface. Encourage weight loss. Refills on the supplies were given. The patient will see me back in one year's time and follow-up, earlier if needed. No other adjustments was done on a CPAP machine.
== END ==
LOC: 3 N SLEEP 11-11 09:22
PROVIDERS: ATTEND Internal Medicine Critical Care Medicine
DX: G47.33 Obstructive sleep apnea (adult) (pediatric) (principal); B20 Human immunodeficiency virus [HIV] disease; I10 Essential (primary) hypertension; E66.9 Obesity, unspecified; E78.5 Hyperlipidemia, unspecified; Z99.89 Dependence on other enabling machines and devices; Z91.09 Other allergy status, other than to drugs and biological substances
CPT/HCPCS: 99212

== ENCOUNTER 2023-04-14 10:37 | Day surgery (SDC) | payer BC ==
[~2023-04-14 10:37] MED LIST: LIDOCAINE 1% (10MG/ML) FOR IV START INTRADERMA PRN; ONDANSETRON 4 MG/2 ML VIAL IVP PRN
[2023-04-14] MEDS: LACTATED RINGERS 1,000 ML IV SCH (10:49)
[2023-04-14 11:36] VITALS: TEMP 97.2
[2023-04-14] MEDS ORDERED: LIDOCAINE 1% INJ 10MG/ML (20 ML MDV) ONE (11:58)
[2023-04-14] MEDS ORDERED: MIDAZOLAM 2 MG/2 ML VIAL ONE (11:58)
[2023-04-14] MEDS ORDERED: PROPOFOL 10 MG/ML 20 ML VIAL IV ONE (11:58)
--- NOTE | 2023-04-14 12:12 | P.PCN ---
Date of Procedure: 04/14/23 Procedure(s) Performed: BRIEF HISTORY: Patient is a 52-year-old pleasant male scheduled for an elective colonoscopy as a part of a screening for colon cancer/positive cologuard. PROCEDURE PERFORMED: Colonoscopy with biopsy and snare polypectomy. PREOPERATIVE DIAGNOSIS: Screening for colon cancer/positive cologuard. IV sedation per Anesthesia. PROCEDURE: After informed consent was obtained, the patient, was brought into the endoscopy unit. IV sedation was administered by Anesthesia under continuous monitoring. Digital rectal examination was normal. Initially the Olympus CF-160 flexible video colonoscope was then inserted in the rectum, gradually advanced into the cecum without any difficulty. Careful examination was performed as the scope was gradually being withdrawn. Ileocecal valve and the appendiceal orifice were visualized and appeared normal. Prep was excellent. Mucosa of the cecum appeared normal. In the ascending colon there was a 7 mm polyp removed by snare polypectomy. In the hepatic flexure there was a 4 mm polyp removed by cold biopsy. In the proximal transverse colon there was a former limited polyp that was removed by cold biopsy. Rest of the, ascending colon, transverse colon, descending colon, sigmoid colon, and rectum appeared normal. Retroflexion was performed in the rectum and no lesions were seen. The patient tolerated the procedure well. IMPRESSION: 7 mm ascending colon polyp status post cold snare polypectomy 4 mm hepatic rectal polyp status post cold biopsy 4 mm transverse colon polyp status post cold biopsy RECOMMENDATIONS: Findings of this examination were discussed with the patient as his family. He was advised to follow with the biopsy results. If the biopsy results and he can have a repeat colonoscopy in 5 years..
[2023-04-14 12:35] VITALS: BP 125/88; PULSE 85; RESP 18
== END 2023-04-14 12:55 | disposition home or self-care (01) ==
LOC: ORWHC2ENDO 10:37
PROVIDERS: ATTEND Internal Medicine Gastroenterology
DX: D12.3 Benign neoplasm of transverse colon (principal); D12.2 Benign neoplasm of ascending colon; E78.5 Hyperlipidemia, unspecified; G47.33 Obstructive sleep apnea (adult) (pediatric); Z90.49 Acquired absence of other specified parts of digestive tract; Z79.899 Other long term (current) drug therapy
CPT/HCPCS: 88305; 45380; 45385; J2250; J2001; J2704